=== PATIENT | female | born 1975 | race Hispanic/Latino ===

== ENCOUNTER 2020-01-10 10:07 | Emergency (ER) | payer MEDICAID, SELFPAY ==
--- NOTE | 2020-01-10 11:33 | ER ---
Nurse's Notes [facility] Name: Alta Sunshine Age: 44 yrs Sex: Female : 1975 Arrival Date: 01/10/2020 Time: 10:10 Bed 7 Private MD: Diagnosis: neck pain Presentation: 01/09 10:21 Chief complaint: Patient states: Stiff neck, slight CHAND since Sunday/maybe ll1 she can't remember. No pain now. Coronavirus screen: Client denies travel out of the [place] in the last 14 days. At this time, the client does not indicate any symptoms associated with coronavirus-19. Ebola Screen: Patient denies travel to an Ebola-affected area in the 21 days before illness onset. Initial Sepsis Screen: Does the patient meet any 2 criteria? No. Patient's initial sepsis screen is negative. Risk Assessment: Do you want to hurt yourself or someone else? Patient reports no desire to harm self or others. Onset of symptoms was January 06, 2020. 10:21 Method Of Arrival: Ambulatory ll1 10:21 Acuity: ALETA 4 ll1 11:00 Initial Sepsis Screen: Does the patient have a suspected source of infection? No. iw Patient's initial sepsis screen is negative. Historical: - Allergies: 10:23 Hydrocodone-Acetaminophen; ll1 - PSHx: 10:23 Appendectomy; ; ll1 - Immunization history:: Flu vaccine is not up to date. - Social history:: Smoking status: Patient denies any tobacco usage or history of. Screenin:33 Abuse screen: Denies threats or abuse. Denies injuries from another. Nutritional iw screening: No deficits noted. Tuberculosis screening: No symptoms or risk factors identified. Fall Risk None identified. Assessment: 11:00 General: Appears in no apparent distress. Behavior is calm, cooperative. General: iw Denies fever, feeling ill. Pain: Denies pain. Neuro: Level of Consciousness is awake, alert, obeys commands, Oriented to person, place, time, situation, Moves all extremities. Full function. Cardiovascular: Patient's skin is warm and dry. Respiratory: Respiratory effort is even, unlabored, Respiratory pattern is regular, symmetrical. GI: Abdomen is non-distended. Derm: Skin is intact, is healthy with good turgor. Musculoskeletal: Range of motion: intact in all extremities. Vital Signs: 10:21 BP 102 / 62; Pulse 61; Resp 16; Temp 98.6; Pulse Ox 96% ; Weight 69.4 kg; Height 5 ft. ll1 3 in. (160.02 cm); Pain 0/10; 10:21 Body Mass Index 27.10 (69.40 kg, 160.02 cm) ll1 ED Course: 10:10 Patient arrived in ED. ds1 10:16 Vikas Barton MD is Attending Physician. kdr 10:22 Triage completed. ll1 10:23 Arm band placed on Patient placed in an exam room, on a stretcher. ll1 10:41 Jennifer Yoo, SURINDER is Primary Nurse. iw 11:00 Patient has correct armband on for positive identification. iw 11:37 No provider procedures requiring assistance completed. Patient did not have IV access iw during this emergency room visit. Administered Medications: No medications were administered Outcome: 11:33 Discharge ordered by . kdr 11:37 Discharged to home ambulatory. iw 11:37 Condition: good 11:37 Discharge instructions given to patient, Instructed on discharge instructions, follow up and referral plans. Demonstrated understanding of instructions, follow-up care. 11:38 Patient left the ED. iw Signatures: Vikas Barton MD MD [facility] Jazmine Aj ds1 Jennifer Yoo, SURINDER CADENA iw Dima Liriano RN RN ll1
--- NOTE | 2020-01-10 11:33 | EDPHYS ---
Physician Documentation [facility] Name: Alta Sunshine Age: 44 yrs Sex: Female : 1975 Arrival Date: 01/10/2020 Time: 10:10 Bed 7 Private MD: ED Physician Vikas Barton HPI: 01/09 13:35 This 44 yrs old Female presents to ER via Ambulatory with complaints of Stiff kdr Neck. 13:35 The patient or guardian complains of pain, that is acute, stiff. The symptoms are kdr located at the C1, C2, C3, C4, C5, C6 and C7, at the cervical spine. Onset: The symptoms/episode began/occurred gradually, 3 day(s) ago. Context: The problem was sustained at home, The neck injury/problem resulted from from unknown cause. Associated signs and symptoms: Pertinent positives: chills, Diarrhea. The pain does not radiate. Modifying factors: The symptoms are alleviated by nothing. the symptoms are aggravated by nothing. Severity of symptoms: At their worst the symptoms were mild, in the emergency department the symptoms have resolved. The patient has not experienced similar symptoms in the past. The patient has not recently seen a physician. Historical: - Allergies: 10:23 Hydrocodone-Acetaminophen; ll1 - PSHx: 10:23 Appendectomy; ; ll1 - Immunization history:: Flu vaccine is not up to date. - Social history:: Smoking status: Patient denies any tobacco usage or history of. ROS: 13:35 Constitutional: Negative for fever, chills, and weight loss, Eyes: Negative for injury, kdr pain, redness, and discharge, ENT: Negative for injury, pain, and discharge, Cardiovascular: Negative for chest pain, palpitations, and edema, Respiratory: Negative for shortness of breath, cough, wheezing, and pleuritic chest pain, Abdomen/GI: Negative for abdominal pain, nausea, vomiting, diarrhea, and constipation, Back: Negative for injury and pain, : Negative for injury, bleeding, discharge, and swelling, MS/Extremity: Negative for injury and deformity, Skin: Negative for injury, rash, and discoloration, Neuro: Negative for headache, weakness, numbness, tingling, and seizure activity. Psych: Negative for depression, anxiety, suicide ideation, homicidal ideation, and hallucinations, Allergy/Immunology: Negative for hives, rash, and allergies, Endocrine: Negative for neck swelling, polydipsia, polyuria, polyphagia, and marked weight changes, Hematologic/Lymphatic: Negative for swollen nodes, abnormal bleeding, and unusual bruising. 13:35 Neck: Positive for pain with movement, stiffness. Exam: 13:35 Constitutional: This is a well developed, well nourished patient who is awake, alert, kdr and in no acute distress. Head/Face: Normocephalic, atraumatic. Eyes: Pupils equal round and reactive to light, extra-ocular motions intact. Lids and lashes normal. Conjunctiva and sclera are non-icteric and not injected. Cornea within normal limits. Periorbital areas with no swelling, redness, or edema. Neck: Trachea midline, no thyromegaly or masses palpated, and no cervical lymphadenopathy. Supple, full range of motion without nuchal rigidity, or vertebral point tenderness. No Meningismus. Chest/axilla: Normal chest wall appearance and motion. Nontender with no deformity. No lesions are appreciated. Cardiovascular: Regular rate and rhythm with a normal S1 and S2. No gallops, murmurs, or rubs. Normal PMI, no JVD. No pulse deficits. Respiratory: Lungs have equal breath sounds bilaterally, clear to auscultation and percussion. No rales, rhonchi or wheezes noted. No increased work of breathing, no retractions or nasal flaring. Abdomen/GI: Soft, non-tender, with normal bowel sounds. No distension or tympany. No guarding or rebound. No evidence of tenderness throughout. Back: No spinal tenderness. No costovertebral tenderness. Full range of motion. Skin: Warm, dry with normal turgor. Normal color with no rashes, no lesions, and no evidence of cellulitis. MS/ Extremity: Pulses equal, no cyanosis. Neurovascular intact. Full, normal range of motion. Neuro: Awake and alert, GCS 15, oriented to person, place, time, and situation. Cranial nerves II-XII grossly intact. Motor strength 5/5 in all extremities. Sensory grossly intact. Cerebellar exam normal. Normal gait. Psych: Awake, alert, with orientation to person, place and time. Behavior, mood, and affect are within normal limits. Vital Signs: 10:21 BP 102 / 62; Pulse 61; Resp 16; Temp 98.6; Pulse Ox 96% ; Weight 69.4 kg; Height 5 ft. ll1 3 in. (160.02 cm); Pain 0/10; 10:21 Body Mass Index 27.10 (69.40 kg, 160.02 cm) ll1 MDM: 11:33 Patient medically screened. kdr 13:35 Data reviewed: vital signs, nurses notes. Counseling: I had a detailed discussion with kdr the patient and/or guardian regarding: the historical points, exam findings, and any diagnostic results supporting the discharge/admit diagnosis, the need for outpatient follow up. Administered Medications: No medications were administered Disposition: 11:30 Neck pain and headache. kdr Disposition: 01/10/20 11:33 Discharged to Home. Impression: neck pain. - Condition is Stable. - Discharge Instructions: Pain Without a Known Cause. - Medication Reconciliation Form, Thank You Letter form. - Follow up: Private Physician; When: 2 - 3 days; Reason: If symptoms return, Further diagnostic work-up, Recheck today's complaints, Continuance of care, Re-evaluation by your physician. - Problem is new. - Symptoms are resolved. Signatures: Vikas Barton MD MD kdr Jennifer Yoo RN RN iw Dima Liriano RN RN ll1 Corrections: (The following items were deleted from the chart) 11:38 11:33 01/10/2020 11:33 Discharged to Home. Impression: neck pain. Condition is Stable. iw Forms are Medication Reconciliation Form, Thank You Letter, Antibiotic Education, Prescription Opioid Use. Follow up: Private Physician; When: 2 - 3 days; Reason: If symptoms return, Further diagnostic work-up, Recheck today's complaints, Continuance of care, Re-evaluation by your physician. Problem is new. Symptoms are resolved. kdr
[2020-01-10 11:51] VITALS: BP 102/62; TEMP 98.6; O2SAT 96
== END 2020-01-10 11:38 | disposition home or self-care (01) ==
LOC: ER 10:07
DX: M54.2 Cervicalgia (principal); Z88.5 Allergy status to narcotic agent
CPT/HCPCS: 99281